=== PATIENT | male | born 1980 | race Caucasian/White ===

== ENCOUNTER 2022-12-22 08:33 | Inpatient (IN) | payer OTHER ==
[2022-12-22] MEDS ORDERED: Dicyclomine 20 MG/2 ML VIAL ONE (09:14)
[2022-12-22] MEDS ORDERED: Haloperidol Lactate 5 MG/ML VIAL ONE (09:51)
[2022-12-22 10:11] LABS: #Eosinphils 0.1 10x3/uL (0.0-0.5); #Monocytes 0.8 10x3/uL (0.0-1.1); #Neutrophils 10.1 10x3/uL (1.5-8.4); %Basophils 0.2 % (0.0-2.0); %Eosinophils 0.7 % (0.0-6.0); %Lymphocytes 10.6 % (18.0-47.0); %Monocytes 6.7 % (0.0-10.0); %Neutrophils 81.5 % (40.0-75.0); Hemoglobin 15.6 g/dL (13.5-17.5); Mean Corpuscular HGB CONC 36.4 g/dL (32.0-36.0); Mean Corpuscular Hemoglobin 30.6 pg (27.0-33.0); Mean Corpuscular Volume 83.9 fl (81.2-95.1); Mean Platelet Volume 8.8 fl (7.4-10.4); Platelet Count 287 10x3/uL (150-450); White Blood Cell (WBC) Count 12.4 10x3/uL (3.5-10.5)
[2022-12-22 10:24] LABS: ALT (SGPT) 31 U/L (8-55); AST (SGOT) 23 U/L (5-34); Albumin 4.6 g/dL (3.5-5.0); Alkaline Phosphatase 67 U/L (40-110); Anion Gap 12 mmol/L (10-20); BUN (Urea Nitrogen) 9 mg/dL (8.9-20.6); Bilirubin, Total 1.3 mg/dL (0.2-1.2); Calc. Creatinine Clearance 0 mL/min (70-130); Calcium 8.9 mg/dL (7.8-10.44); Carbon Dioxide 25 mmol/L (22-29); Chloride 99 mmol/L (98-107); Estimated GFR 104; Globulin 2.1 g/dL (2.4-3.5); Glucose 130 mg/dL (70-105); Lipase 11 U/L (8-78); Potassium 2.9 mmol/L (3.5-5.1); Protein, Total 6.7 g/dL (6.0-8.3); Sodium 133 mmol/L (136-145)
[2022-12-22] MEDS ORDERED: Potassium Chloride 20 MEQ/100 ML PREMIX BAG ONE (10:35)
[2022-12-22] MEDS ORDERED: Acetaminophen 325 MG TAB PO PRN (11:03)
[2022-12-22] MEDS ORDERED: Calcium Carbonate 500 MG ChewTAB PO PRN (11:03)
[2022-12-22] MEDS ORDERED: Metoclopramide HCl 10 MG/2 ML VIAL ONE (12:16)
[2022-12-22] MEDS ORDERED: Morphine 4 MG/ML VIAL ONE (12:16)
[2022-12-22] MEDS: NS 0.9% w/ 40 MEQ KCL 1,000 ML IV SCH ×2 (12:56→21:09)
[2022-12-22] MEDS: Metoclopramide HCl 10 MG/2 ML VIAL IVP SCH ×2 (12:57→18:31)
[2022-12-22] MEDS ORDERED: Loperamide HCl 2 MG CAP PO PRN (13:00)
[2022-12-22] MEDS ORDERED: Lorazepam 1 MG TAB PO PRN (13:00)
[2022-12-22] MEDS ORDERED: Morphine 4 MG/ML VIAL SLOW IVP SCH (13:00)
[2022-12-22] MEDS ORDERED: Dicyclomine 20 MG TAB ONE (14:26)
[2022-12-22] MEDS: Dicyclomine 10 MG CAP PO PRN (14:28)
[2022-12-22 17:15] LABS: Anion Gap 11 mmol/L (10-20); BUN (Urea Nitrogen) 6 mg/dL (8.9-20.6); Calc. Creatinine Clearance 0 mL/min (70-130); Calcium 8.5 mg/dL (7.8-10.44); Carbon Dioxide 24 mmol/L (22-29); Chloride 105 mmol/L (98-107); Estimated GFR 111; Glucose 118 mg/dL (70-105); Magnesium 2.7 mg/dL (1.6-2.6); Sodium 136 mmol/L (136-145)
[2022-12-22] MEDS ORDERED: Ketorolac Tromethamine 30 MG/ML VIAL ONE (17:21)
[2022-12-22] MEDS: Ketorolac Tromethamine 30 MG/ML VIAL IVP PRN ×2 (17:28→22:42)
[2022-12-22 18:12] VITALS: BMI 26.5
[2022-12-22] MEDS: Famotidine/PF 20 mg/2ml Vial SLOW IVP SCH (20:14)
[2022-12-23] MEDS: Metoclopramide HCl 10 MG/2 ML VIAL IVP SCH ×3 (01:15→15:46)
[2022-12-23] MEDS: Ketorolac Tromethamine 30 MG/ML VIAL IVP PRN (05:20)
[2022-12-23] MEDS: NS 0.9% w/ 40 MEQ KCL 1,000 ML IV SCH (06:19)
[2022-12-23 06:54] LABS: #Eosinphils 0.1 10x3/uL (0.0-0.5); #Monocytes 0.6 10x3/uL (0.0-1.1); #Neutrophils 6.9 10x3/uL (1.5-8.4); %Basophils 0.3 % (0.0-2.0); %Lymphocytes 15.4 % (18.0-47.0); %Monocytes 6.7 % (0.0-10.0); %Neutrophils 76.2 % (40.0-75.0); Hemoglobin 15.1 g/dL (13.5-17.5); Mean Corpuscular HGB CONC 35.6 g/dL (32.0-36.0); Mean Corpuscular Hemoglobin 30.5 pg (27.0-33.0); Mean Corpuscular Volume 85.7 fl (81.2-95.1); Platelet Count 250 10x3/uL (150-450); RBC Distribution Width 12.2 % (11.5-14.5); Red Blood Cell (RBC) Count 4.95 10x6/uL (4.32-5.72); White Blood Cell (WBC) Count 9.1 10x3/uL (3.5-10.5)
[2022-12-23 07:06] LABS: ALT (SGPT) 37 U/L (8-55); AST (SGOT) 24 U/L (5-34); Albumin 4.3 g/dL (3.5-5.0); Alkaline Phosphatase 72 U/L (40-110); Anion Gap 11 mmol/L (10-20); BUN (Urea Nitrogen) 4 mg/dL (8.9-20.6); Calc. Creatinine Clearance 155 mL/min (70-130); Calcium 8.6 mg/dL (7.8-10.44); Carbon Dioxide 21 mmol/L (22-29); Chloride 105 mmol/L (98-107); Estimated GFR 113; Glucose 111 mg/dL (70-105); Magnesium 2.2 mg/dL (1.6-2.6); Potassium 4.1 mmol/L (3.5-5.1); Protein, Total 6.3 g/dL (6.0-8.3); Sodium 133 mmol/L (136-145)
[2022-12-23] MEDS: Famotidine/PF 20 mg/2ml Vial SLOW IVP SCH (08:05)
[2022-12-23] MEDS: Dicyclomine 10 MG CAP PO PRN (14:58)
[2022-12-23] MEDS ORDERED: Ondansetron PF 4 MG/2 ML Vial ONE (15:37)
[2022-12-23] MEDS: Ondansetron PF 4 MG/2 ML Vial IVP PRN ×2 (15:39→21:12)
[2022-12-23] MEDS ORDERED: Ketorolac Tromethamine 30 MG/ML VIAL IVP PRN (16:42)
[2022-12-23] MEDS: Sodium Chloride 0.9% 1,000 ML IV SCH (17:23)
[2022-12-23] MEDS ORDERED: Metoclopramide HCl 10 MG/2 ML VIAL IVP PRN (19:17)
[2022-12-23] MEDS ORDERED: tiZANidine HCl 4 MG TAB PO SCH (21:00)
[2022-12-23] MEDS ORDERED: Lorazepam 0.5 MG TAB PO SCH (21:00)
[2022-12-23] MEDS ORDERED: Nortriptyline 10 MG CAP PO SCH (21:00)
[2022-12-24] MEDS: Sodium Chloride 0.9% 1,000 ML IV SCH (05:16)
[2022-12-24 05:51] LABS: #Eosinphils 0.1 10x3/uL (0.0-0.5); #Neutrophils 6.6 10x3/uL (1.5-8.4); %Basophils 0.4 % (0.0-2.0); %Eosinophils 1.4 % (0.0-6.0); %Lymphocytes 17.9 % (18.0-47.0); %Monocytes 10.2 % (0.0-10.0); %Neutrophils 69.7 % (40.0-75.0); Hemoglobin 16.1 g/dL (13.5-17.5); Mean Corpuscular HGB CONC 35.5 g/dL (32.0-36.0); Mean Corpuscular Volume 84.4 fl (81.2-95.1); Mean Platelet Volume 8.6 fl (7.4-10.4); Platelet Count 276 10x3/uL (150-450); RBC Distribution Width 12.1 % (11.5-14.5); Red Blood Cell (RBC) Count 5.37 10x6/uL (4.32-5.72); White Blood Cell (WBC) Count 9.4 10x3/uL (3.5-10.5)
[2022-12-24 06:06] LABS: Anion Gap 10 mmol/L (10-20); BUN (Urea Nitrogen) 7 mg/dL (8.9-20.6); Calc. Creatinine Clearance 141 mL/min (70-130); Calcium 8.8 mg/dL (7.8-10.44); Carbon Dioxide 24 mmol/L (22-29); Chloride 102 mmol/L (98-107); Estimated GFR 110; Glucose 103 mg/dL (70-105); Potassium 4.1 mmol/L (3.5-5.1); Sodium 132 mmol/L (136-145)
[2022-12-24] MEDS ORDERED: Famotidine/PF 20 mg/2ml Vial SLOW IVP SCH (09:00)
[2022-12-24] MEDS ORDERED: Lorazepam 0.5 MG TAB PO PRN (13:22)
[2022-12-24 14:51] VITALS: BP 180/100; TEMP 98.2
== END 2022-12-24 15:30 | disposition home or self-care (01) | DRG 392 ==
LOC: SUATTDRO 08:33 → CSHERS 08:33 → CSHERHOLD 12:30 → CSHTELE 17:01 → OBSVTOIN 12-24 09:15
PROVIDERS: ADMIT Internal Medicine; ATTEND Nurse Practitioner Family
DX: R11.2 Nausea with vomiting, unspecified (principal); E87.1 Hypo-osmolality and hyponatremia; K21.9 Gastro-esophageal reflux disease without esophagitis; E86.0 Dehydration; E87.6 Hypokalemia; I10 Essential (primary) hypertension; F12.980 Cannabis use, unspecified with anxiety disorder; E78.5 Hyperlipidemia, unspecified; G43.909 Migraine, unspecified, not intractable, without status migrainosus; Z79.891 Long term (current) use of opiate analgesic; Z98.890 Other specified postprocedural states; Z71.51 Drug abuse counseling and surveillance of drug abuser; Z87.19 Personal history of other diseases of the digestive system; Z87.442 Personal history of urinary calculi
CPT/HCPCS: 36415; 74018; 80048; 80053; 83690; 83735; 85025; 93005; 94760; 96375; 96376; G0378; J1630; J1885; J2270; J2405; J2765; J3480; J7050; S0028